=== PATIENT | female | born 1995 | race Caucasian/White ===

== ENCOUNTER 2017-11-16 22:30 | Inpatient (IN) | payer OTHER ==
[2017-11-16 23:06] LABS: APPEARANCE,URINE CLEAR; BILIRUBIN,URINE NEGATIVE (NEGATIVE); COLOR,URINE YELLOW; GLUCOSE, URINE NEGATIVE (NEGATIVE); KETONES,URINE NEGATIVE (NEGATIVE); LEUKOCYTE ESTERASE,URINE NEGATIVE (NEGATIVE); NITRITE,URINE NEGATIVE (NEGATIVE); PROTEIN,URINE NEGATIVE (NEGATIVE); URINE SPECIFIC GRAVITY 1.009; UROBILINOGEN,URINE NEGATIVE mg/dL (<2.0)
[2017-11-16] MEDS ORDERED: RINGERS SOLUTION,LACTATED 300 ML IV ONE (23:15)
[2017-11-16] MEDS ORDERED: DINOPROSTONE 10 MG VAGINAL INSERT.SR PV PRN (23:15)
[2017-11-16 23:16] LABS: ABSOLUTE EOSINOPHILS # (AUTO) 0.1 10^3/uL (0.0-0.6); ABSOLUTE LYMPHOCYTES (AUTO) 2.4 10^3/uL (0.5-4.7); ABSOLUTE MONOCYTES (AUTO) 0.7 10^3/uL (0.1-1.4); ABSOLUTE NEUT (AUTO) 9.1 10^3/uL (1.7-8.2); BASOPHILS % (AUTO) 0.4 % (0-2); EOSINOPHILS % (AUTO) 0.8 % (0-6); HEMOGLOBIN 11.4 g/dL (12.0-15.5); LYMPHOCYTES % (AUTO) 19.5 % (13-45); MEAN CORPUSCULAR HEMOGLOBIN 29.1 pg (27.0-33.4); MEAN CORPUSCULAR HGB CONC 34.6 g/dL (32.0-36.0); MEAN CORPUSCULAR VOLUME 84 fl (80-97); MONOCYTES % (AUTO) 5.8 % (3-13); PLATELET COUNT 329 10^3/uL (150-450); RED BLOOD COUNT 3.92 10^6/uL (3.72-5.28); RED CELL DISTRIBUTION WIDTH 12.4 % (11.5-14.0); SEGMENTED NEUTROPHILS % (AUTO) 73.5 % (42-78); TOTAL CELLS COUNTED % (AUTO) 100 %; WHITE BLOOD COUNT 12.4 10^3/uL (4.0-10.5)
[2017-11-16] MEDS ORDERED: ACETAMINOPHEN 325 MG TABLET PO PRN (23:16)
[2017-11-16] MEDS ORDERED: MAG HYDROX/AL HYDROX/SIMETH SUSP 30 ML UDCUP PO PRN (23:16)
[2017-11-16 23:28] LABS: ALANINE AMINOTRANSFERASE 20 U/L (9-52); ALBUMIN 3.3 g/dL (3.5-5.0); ALKALINE PHOSPHATASE 154 U/L (38-126); ANION GAP 10 (5-19); ASPARTATE AMINO TRANSFERASE 18 U/L (14-36); BILIRUBIN,DIRECT 0.2 mg/dL (0.0-0.4); BILIRUBIN,TOTAL 0.3 mg/dL (0.2-1.3); BLOOD UREA NITROGEN 6 mg/dL (7-20); CALCIUM 9.4 mg/dL (8.4-10.2); CARBON DIOXIDE 23 mmol/L (22-30); CHLORIDE 104 mmol/L (98-107); GLUCOSE 86 mg/dL (75-110); POTASSIUM 3.8 mmol/L (3.6-5.0); SODIUM 136.8 mmol/L (137-145); TOTAL PROTEIN 6.4 g/dL (6.3-8.2); URIC ACID 4.2 mg/dL (2.5-6.2)
[2017-11-16] MEDS ORDERED: DINOPROSTONE 10 MG VAGINAL INSERT.SR ONE (23:28)
[2017-11-16] MEDS ORDERED: ZOLPIDEM TARTRATE 5 MG TABLET PO ONE (23:30)
[2017-11-16] MEDS: RINGERS SOLUTION,LACTATED 1,000 ML IV PRN (23:32)
[2017-11-16 23:36] LABS: URINE AMPHETAMINES SCREEN NEGATIVE; URINE BARBITURATES SCREEN NEGATIVE; URINE BENZODIAZEPINES SCREEN NEGATIVE; URINE COCAINE SCREEN NEGATIVE; URINE MARIJUANA (THC) SCREEN NEGATIVE; URINE METHADONE SCREEN NEGATIVE; URINE PHENCYCLIDINE SCREEN NEGATIVE
[2017-11-16 23:40] LABS: UR PRO/CREAT RATIO RESULT 0.3 mg/mg (0.0-0.2); URINE CREATININE 57.7 mg/dL (16-327); URINE PROTEIN 19.2 mg/dL (<12)
[2017-11-17] MEDS: RINGERS SOLUTION,LACTATED 1,000 ML IV PRN ×2 (02:13→06:28)
[2017-11-17] MEDS ORDERED: ZOLPIDEM TARTRATE 5 MG TABLET ONE (02:16)
--- NOTE | 2017-11-17 04:52 | Admission Physical ---
Datetime Report Generated by CPN: 11/17/2017 04:52 CURRENT ADMISSION Chief Complaint: Scheduled Induction of Labor Indication for Induction: IUGR; Gestational HTN; Maternal Diabetes Admit Impression : Term, Intrauterine Admit Plan: Initiate Labor Protocol ALLERGIES Medication Allergies: No Known Allergies (11/16/2017) OBSTETRICAL HISTORY EDC: 12/08/2017 00:00 : 1 Para: 0 Term: 0 : 0 SAB: 0 IAB: 0 Ectopic: 0 Livin Cesareans: 0 VBACs: 0 Multiple Births: 0 Gestational Diabetes: Yes Rh Sensitization: No Incompetent Cervix: No HARI: No Infertility: No ART Treatment: No Uterine Anomaly: No IUGR: Yes Hx Previous C/S: No Macrosomia: No Hx Loss/Stillborn: No PIH: No Hx : No Placenta Previa/Abruption: No Depression/PP Depression: No PTL/PROM: No Post Hemorrhage: No Current Procedures: Ultrasound; NST Obstetrical History Comments: g1- current IUGR, CHTN, GDM SEE RECORDS Alcohol: No Marijuana : No Cocaine: No Other Illicit Drugs: No Cigarettes: Never Smoker. 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 Surgery: No Heart Disease: No Hosp/Surgery: Yes Autoimmune Disorder: No Anesthetic Complications: No Kidney Disease: Yes Abnormal Pap Smear: No Neuro/Epilepsy: No Psychiatric Disorders: No Other Medical Diseases: No Hepatitis/Liver Disease: No Significant Family History: No Varicosities/Phlebitis: No Trauma/Violence : No Thyroid Dysfunction: No Medical History Comments: tonsilectomy, anxiety INFECTIOUS HISTORY Gonorrhea: No Genital Herpes: No Chlamydia: No Tuberculosis: No Syphilis: No Hepatitis: No HIV/AIDS Exposure: No Rash or Viral Illness: No HPV: No PHYSICAL EXAM General: Normal HEENT: Normal Neurologic: Normal Thyroid: Normal Heart: Normal Lungs: Normal Breast: Deferred Back: Normal Abdomen: Normal Genitourinary Exam: Normal Extremities: Normal DTRs: Normal Pelvic Type: Adequate MEMBRANES Membranes: Intact FETUS A EGA: 37.0 PLANS FOR LABOR AND DELIVERY Labor and Delivery: None Pain Management: Epidural Feeding Preference: Breast Benefit of Breast Feed Discussed: Yes Circumcision: N/A INFORMED CONSENT Signature: with User ID: [email or web address]
[2017-11-17] MEDS ORDERED: EPHEDRINE SULFATE INJ 50 MG/1 ML AMPULE ONE (10:40)
[2017-11-17] MEDS ORDERED: BUPIVACAINE HCL 0.25 % INJ/PF (2.5 MG/1 ML) 30 ML VIAL ONE (10:40)
[2017-11-17] MEDS ORDERED: FENTANYL/BUPIVACAINE/NS/PF 300 MCG/150 ML RTUINJ EPI ONE (10:40)
[2017-11-17] MEDS ORDERED: OXYTOCIN/NORMAL SALINE 20 UNIT/1,000 ML RTUINJ IV PRN ×2 (11:15→18:28)
[2017-11-17] MEDS ORDERED: OXYTOCIN/NORMAL SALINE 20 UNIT/1,000 ML RTUINJ ONE (11:52)
[2017-11-17] MEDS ORDERED: MISOPROSTOL 0.2 MG TABLET ONE (17:20)
[2017-11-17] MEDS ORDERED: LIDOCAINE 1% INJ-PF (10 MG/ML) 30 ML SDV ONE (17:20)
[2017-11-17] MEDS ORDERED: DIBUCAINE 1% OINTMENT 28 GM TP PRN (18:28)
[2017-11-17] MEDS ORDERED: GLYCERIN/WITCH HAZEL LEAF 1 EACH MED..PAD TP PRN (18:28)
[2017-11-17] MEDS ORDERED: ACETAMINOPHEN WITH CODEINE #3 TABLET PO PRN ×2 (18:28)
[2017-11-17] MEDS ORDERED: NA PHOS,M-B/NA PHOS,DI-BA (ADULT) 133 ML ENEMA PR PRN (18:28)
[2017-11-17] MEDS ORDERED: ZOLPIDEM TARTRATE 5 MG TABLET PO PRN (18:28)
[2017-11-17] MEDS ORDERED: MEASLES,MUMPS&RUBELLA VACC/PF 0.5 ML VIAL SUBCUT PRN (18:28)
[2017-11-17] MEDS ORDERED: ACETAMINOPHEN 325 MG TABLET PO PRN (18:28)
[2017-11-17] MEDS ORDERED: MAGNESIUM HYDROXIDE SUSP 30 ML UDCUP PO PRN (18:28)
[2017-11-17] MEDS ORDERED: PSEUDOEPHEDRINE HCL 30 MG TABLET PO PRN (18:28)
[2017-11-17] MEDS ORDERED: PROMETHAZINE HCL 25 MG TABLET PO PRN (18:28)
[2017-11-17] MEDS ORDERED: DIPHENHYDRAMINE HCL 25 MG CAPSULE PO PRN (18:28)
[2017-11-17] MEDS ORDERED: BENZOCAINE/MENTHOL AEROSOL SPRAY 56 ML TOP PRN (18:28)
[2017-11-17] MEDS ORDERED: PROMETHAZINE HCL INJ 25 MG/1 ML VIAL IV PRN (18:28)
[2017-11-17] MEDS ORDERED: DIPH/PERTUSS(ACELL)/TETANUS VAC/PF 0.5 ML SYR (>=10YO) IM PRN (18:28)
[2017-11-17] MEDS ORDERED: PROMETHAZINE HCL 25 MG SUPP.RECT PR PRN (18:28)
[2017-11-17] MEDS ORDERED: ZOLPIDEM TARTRATE 5 MG TABLET PO SCH (22:00)
[2017-11-17] MEDS: IBUPROFEN 800 MG TABLET PO SCH (22:54)
[2017-11-17] MEDS: FAMOTIDINE 20 MG TABLET PO SCH (22:54)
[2017-11-18] MEDS: IBUPROFEN 800 MG TABLET PO SCH ×3 (06:23→21:36)
[2017-11-18 07:37] LABS: HEMATOCRIT 27.5 % (36.0-47.0); HEMOGLOBIN 9.4 g/dL (12.0-15.5); MEAN CORPUSCULAR HGB CONC 34.3 g/dL (32.0-36.0); MEAN CORPUSCULAR VOLUME 85 fl (80-97); PLATELET COUNT 246 10^3/uL (150-450); RED BLOOD COUNT 3.25 10^6/uL (3.72-5.28); RED CELL DISTRIBUTION WIDTH 12.8 % (11.5-14.0); WHITE BLOOD COUNT 16.7 10^3/uL (4.0-10.5)
[2017-11-18] MEDS: PRENATAL VITAMIN W DHA CAPSULE PO SCH (09:45)
[2017-11-18] MEDS: DOCUSATE SODIUM 100 MG CAPSULE PO SCH ×2 (09:45→17:29)
[2017-11-18] MEDS: FERROUS SULFATE 325 MG TABLET PO SCH ×2 (09:45→17:29)
[2017-11-18] MEDS: SENNOSIDES/DOCUSATE 8.6-50 MG 1 EACH TABLET PO SCH (09:45)
[2017-11-18] MEDS: FAMOTIDINE 20 MG TABLET PO SCH ×2 (09:45→21:36)
--- NOTE | 2017-11-18 10:16 | PDOC PROGRESS REPORT ---
Subjective-OB Progress Note for:: 11/18/17 Subjective: Doing well, holding baby, no c/o, , hsb at BS, lochia mod, eating well Physical Exam (OB) Vital Signs: Temp Pulse Resp BP Pulse Ox 98.0 F 89 16 123/66 97 11/18/17 08:28 11/18/17 08:28 11/18/17 08:28 11/18/17 08:28 11/18/17 08:28 Intake & Output 11/17/17 11/18/17 11/19/17 06:59 06:59 06:59 Intake Total 866 Balance 866 Weight 63.5 kg - Lochia Lochia Amount: Small 10-25 ml Lochia Color: Rubra/Red - Abdomen Description: Soft, Round Hernia Present: No Fundal Description: Firm, Midline Fundal Height: u/u - u/2 Objective-Diagnostic Laboratory: 11/18/17 07:02 11/16/17 23:00 11/18/17 07:02 WBC 16.7 H RBC 3.25 L Hgb 9.4 L Hct 27.5 L MCV 85 MCH 29.0 MCHC 34.3 RDW 12.8 Plt Count 246 Assessment and Plan(PN) - Assessment and Plan (1) Anemia Qualifiers: Anemia type: iron deficiency Is this a current diagnosis for this admission?: Yes (2) Obstetrical laceration, second degree Is this a current diagnosis for this admission?: Yes (3) Vaginal delivery Is this a current diagnosis for this admission?: Yes (4) Encounter for induction of labor Is this a current diagnosis for this admission?: Yes (5) Hypertension affecting Qualifiers: Trimester: third trimester Qualified Code(s): O16.3 - Unspecified maternal hypertension, third trimester Is this a current diagnosis for this admission?: Yes - Time Spent with Patient Time with patient: Less than 15 minutes Medications reviewed and adjusted accordingly: Yes - Disposition Anticipated Discharge: Home Within: within 48 hours
[2017-11-18 21:26] VITALS: BP 115/67
[2017-11-19] MEDS: IBUPROFEN 800 MG TABLET PO SCH (06:49)
--- NOTE | 2017-11-19 08:39 | PDOC PROGRESS REPORT ---
Subjective-OB Progress Note for:: 11/19/17 Subjective: Doing well, ready to go home Physical Exam (OB) Vital Signs: Temp Pulse Resp BP Pulse Ox 97.6 F 94 16 115/67 100 11/18/17 20:20 11/18/17 20:20 11/18/17 20:20 11/18/17 20:20 11/18/17 20:20 Intake & Output 11/18/17 11/19/17 11/20/17 06:59 06:59 06:59 Intake Total 400 Balance 400 Baby 1 Female 2.381 kg - PIH/Pre-Eclampsia DTR's: 1 + Clonus: Negative Headache: Absent Epigastric Pain: No Visual Changes: No - Lochia Lochia Amount: Small 10-25 ml Lochia Color: Rubra/Red - Abdomen Description: Tender, Soft Hernia Present: No Fundal Description: Firm, Midline Fundal Height: u/u - u/2 Objective-Diagnostic Laboratory: 11/18/17 07:02 11/16/17 23:00 Assessment and Plan(PN) - Assessment and Plan (1) Anemia Qualifiers: Anemia type: iron deficiency Is this a current diagnosis for this admission?: Yes (2) Obstetrical laceration, second degree Is this a current diagnosis for this admission?: Yes (3) Vaginal delivery Is this a current diagnosis for this admission?: Yes (4) Encounter for induction of labor Is this a current diagnosis for this admission?: Yes (5) Hypertension affecting Qualifiers: Trimester: third trimester Qualified Code(s): O16.3 - Unspecified maternal hypertension, third trimester Is this a current diagnosis for this admission?: Yes - Time Spent with Patient Time with patient: Less than 15 minutes Medications reviewed and adjusted accordingly: Yes - Disposition Anticipated Discharge: Home Within: Other - home today
--- NOTE | 2017-11-19 08:40 | PDOC DISCHARGE SUMMARY ---
Final Diagnosis Discharge Date: 11/19/17 - Final Diagnosis (1) Anemia Is this a current diagnosis for this admission?: Yes (2) Obstetrical laceration, second degree Is this a current diagnosis for this admission?: Yes (3) Vaginal delivery Is this a current diagnosis for this admission?: Yes (4) Encounter for induction of labor Is this a current diagnosis for this admission?: Yes (5) Hypertension affecting Is this a current diagnosis for this admission?: Yes Discharge Data - Discharge Medication Prescriptions: Ferrous Sulfate [Feosol 325 mg Tablet] 325 mg PO BID #60 tablet Ibuprofen [Motrin 800 mg Tablet] 800 mg PO Q8 #30 tablet Home Medications: 95/Iron Fum/Folic/Dha [ + Dha Combo Pack] 1 each PO DAILY 11/16 Ferrous Sulfate [Feosol 325 mg Tablet] 325 mg PO BID #60 tablet 11/18/17 Ibuprofen [Motrin 800 mg Tablet] 800 mg PO Q8 #30 tablet 11/18/17 Gestational Age: 37 Reason(s) for Admission: Induction of Labor, PIH Admission Note: Pre-E, IUGR Procedures: NST, Ultrasound Intrapartum Procedure(s): Spontaneous Vaginal Delivery Complication(s): Laceration-Vaginal Laceration-Degree: 2nd - [place] Data Baby 1 Female at 1 minute: 9 at 5 minutes: 9 Weight: 2.381 kg Home with Mother: Yes Complications: No - Diagnosis Test Laboratory: Temp Pulse Resp BP Pulse Ox 98.0 F 89 16 123/66 97 11/18/17 08:28 11/18/17 08:28 11/18/17 08:28 11/18/17 08:28 11/18/17 08:28 11/16/17 11/16/17 11/18/17 22:23 22:42 07:02 RBC 3.92 3.25 L Hgb 11.4 L 9.4 L Hct 33.0 L 27.5 L Urine Opiates Screen NEGATIVE - Discharge information/Instructions Discharge Activity: Activity As Tolerated, No Lifting Over 10 Pounds, No Lifting /Push/Pulling, Pelvic Rest Discharge Diet: As Tolerated, Regular Disposition: HOME, SELF-CARE Follow up with: [facility] in: 2, Weeks
[2017-11-19] MEDS: DOCUSATE SODIUM 100 MG CAPSULE PO SCH (09:58)
[2017-11-19] MEDS: FAMOTIDINE 20 MG TABLET PO SCH (09:58)
[2017-11-19] MEDS: SENNOSIDES/DOCUSATE 8.6-50 MG 1 EACH TABLET PO SCH (09:58)
[2017-11-19] MEDS: FERROUS SULFATE 325 MG TABLET PO SCH (09:58)
[2017-11-19] MEDS: PRENATAL VITAMIN W DHA CAPSULE PO SCH (09:58)
--- NOTE | 2017-11-24 08:38 | Delivery Summary ---
Del Sum A-C Datetime Report Generated by CPN: 11/24/2017 08:38 DELIVERY PERSONNEL DELIVERY PERSONNEL: [id number] Delivery Doctor:: Gala Rollins, CNM Labor and Delivery Nurse:: Siobhan Stele, RNC Integrated Circuit Layout Designer/HUMAN RESOURCES SUPERVISOR: Nicole Deems, BACTERIOLOGY TECHNICIAN MATERNAL INFORMATION Delivery Anesthesia: Epidural Medications After Delivery: Pitocin Drip 20 Units/1000ml NSS Maternal Complications: Other Complication Details: pre-e /chtn/gdm/iugr LABOR SUMMARY EDC: 12/08/2017 00:00 No. Babies in Womb: 1 Attempted: No Labor Anesthesia: Epidural LABOR INFORMATION Reason for Induction: Intrauterine Growth Retardation; Chronic Primary/Essential HTN; Gestational Hypertension; Pre-Eclampsia Onset of Labor: 11/17/2017 11:30 Complete Dilatation: 11/17/2017 17:40 Oxytocin: Induction Group B Beta Strep: Negative Antibiotics # of Doses: 0 Antibiotics Time of Last Dose: 0 Name of Antibiotic Given: 0 Steroids Given: None Reason Steroids Not Administered: Not Applicable MEMBRANES Membranes Rupture Method: Artificial Membranes Rupture Method: Artificial Rupture of Membranes: 11/17/2017 17:40 Rupture of Membranes: 11/17/2017 17:40 Length of Rupture (hr): 0.48 Length of Rupture (hr): 0.48 Amniotic Fluid Color: Clear Amniotic Fluid Color: Clear Amniotic Fluid Amount: Moderate Amniotic Fluid Amount: Moderate Amniotic Fluid Odor: Normal Amniotic Fluid Odor: Normal STAGES OF LABOR Stage 1 hr: 6 Stage 1 min: 10 Stage 2 hr: 0 Stage 2 min: 29 Stage 3 hr: 0 Stage 3 min: 2 Total Time in Labor hr: 6 Total Time in Labor min: 41 VAGINAL DELIVERY Episiotomy: None Laceration #1: Vaginal Laceration Extension #1: Second Degree Laceration Repair: Yes Laceration Repair Note: DIRECT OA, VIABLE FEMALE WITH SPONTANEOUS CRY. CORD DOUBLE CLAMPED AND CUT. SPONTANEOUS INTACT PLACENTA WITH 3VC. 2ND DEGREE POSTERIOR VAGINAL LACERATION REPAIRED UNDER EPIDURAL ANESTHESIA. MOTHER AND STABLE IN L_D #5 Sponge Count Correct: Yes Sharps Count Correct: Yes CSECTION DELIVERY Primary Indication: N/A Secondary Indication: N/A CSection Incidence: N/A Labor: N/A Elective: N/A CSection Incision: N/A BABY A INFORMATION Infant Delivery Date/Time: 11/17/2017 18:09 Method of Delivery: Vaginal Born in Route : No : N/A Forceps: N/A Vacuum Extraction: N/A Shoulder Dystocia : No PRESENTATION/POSITION BABY A Presentation: Cephalic Cephalic Presentation: Vertex Vertex Position: direct oa Breech Presentation: N/A PLACENTA INFORMATION BABY A Placenta Delivery Time : 11/17/2017 18:11 Placenta Method of Delivery: Spontaneous Placenta Status: Delivered SCORES BABY A Heart Rate 1 min: >100 bpm Resp Effort 1 min: Good Cry Reflex Irritability 1 min: Cough or Sneeze or Pulls Away Muscle Tone 1 min: Active Motion Color 1 min: Body [place], Extremities Blue Resuscitation Effort 1 min: Tactile Stimulation SCORE 1 MIN: 9 Heart Rate 5 min: >100 bpm Resp Effort 5 min: Good Cry Reflex Irritability 5 min: Cough or Sneeze or Pulls Away Muscle Tone 5 min: Active Motion Color 5 min: Body [place], Extremities Blue SCORE 5 MIN: 9 INFORMATION BABY A Gestational Age at Delivery: 37.0 Gestational Status: Early Term- 37- 38.6 Weeks Infant Outcome : Liveborn Infant Condition : Stable Infant Sex: Female IDENTIFICATION BABY A Verification Date/Time: 11/17/2017 19:13 ID Band Number: [id number] Mother's Name Verified: Yes RN Verifying Infant: O Richard RN/D Bellavance RN WEIGHT/LENGTH BABY A Infant Birthweight (gm): 2390 Infant Weight (lb): 5 Infant Weight (oz): 4 Infant Length (in): 18.00 Length (cm): 45.72 CORD INFORMATION BABY A No. Cord Vessels: 3 Nuchal Cord : N/A Cord Blood Taken: Yes-For Storage (Mom's Blood type +) Infant Suction: None ASSESSMENT BABY A Infant Complications: None Physical Findings at Delivery: Within Normal Limits Respirations: Appears Normal Infant Care By: D Bellavance RN Transferred To: Remains with Mother BABY B INFORMATION : N/A SIGNATURES Assignment: Yasmin Modi MD Signature: with User ID: [email or web address] : with User ID: [email or web address] : I was personally available for consultation and serving as supervising physician for the MLP.
== END 2017-11-19 18:30 | disposition home or self-care (01) | DRG 775 ==
LOC: LR 22:30 → EDBD 22:30 → 2S 11-17 20:54
PROVIDERS: ADMIT Obstetrics & Gynecology Gynecology; ATTEND Obstetrics & Gynecology Gynecology
PROC: 4A1HXCZ Monitoring of Products of Conception, Cardiac Rate, External Approach (ICD-10-PCS; 2017-11-16)
PROC: 10E0XZZ Delivery of Products of Conception, External Approach (ICD-10-PCS; principal; 2017-11-17)
PROC: 0KQM0ZZ Repair Perineum Muscle, Open Approach (ICD-10-PCS; 2017-11-17)
PROC: 10907ZC Drainage of Amniotic Fluid, Therapeutic from Products of Conception, Via Natural or Artificial Opening (ICD-10-PCS; 2017-11-17)
PROC: 3E033VJ Introduction of Other Hormone into Peripheral Vein, Percutaneous Approach (ICD-10-PCS; 2017-11-17)
DX: O13.4 Gestational [pregnancy-induced] hypertension without significant proteinuria, complicating childbirth (principal); O70.1 Second degree perineal laceration during delivery; O36.5930 Maternal care for other known or suspected poor fetal growth, third trimester, not applicable or unspecified; O99.02 Anemia complicating childbirth; D50.9 Iron deficiency anemia, unspecified; O24.429 Gestational diabetes mellitus in childbirth, unspecified control; Z3A.37 37 weeks gestation of pregnancy; Z37.0 Single live birth
CPT/HCPCS: 36415; 80053; 80307; 81005; 82570; 83615; 84156; 84550; 85025; 85027; 86592; 86850; 86900; 86901; 94760; J2590; J3010; J3490

== ENCOUNTER 2019-03-03 10:14 | Emergency (ER) | payer OTHER ==
--- NOTE | 2019-03-03 10:43 | ER Document Report ---
ED Dizziness/Weakness - General Chief Complaint: Dizziness Stated Complaint: DIZZINESS Time Seen by Provider: 03/03/19 10:33 Primary Care Provider: ASIA MORATAYA MD [Primary Care Provider] - Follow up as needed Mode of Arrival: Ambulatory Information source: Patient Notes: This 23-year-old woman presents to the emergency department with a complaint of dizziness which began yesterday. She describes i a spinning sensation which is worsened by changes in her head position. She denies prior history of vertigo. She also states when she walks she feels off balance. Her symptoms are improved at rest. She has no significant medical problems. She denies any prior ne urologic abnormalities or recent upper respiratory tract symptoms. TRAVEL OUTSIDE OF THE [place] IN LAST 30 DAYS: No - HPI Patient complains to provider of: Dizziness, Vertigo Onset: Yesterday Onset/Duration: Sudden Severity: Moderate - 23-year-old woman presents with a 1 day history of vertigo- like symptoms. Complains of burning sensation when she lifts her head looks to the left the right. She denies any active medical problems has a history of gestational diabetes. Pain Level: 0 - Related Data Allergies/Adverse Reactions: No Known Allergies Allergy (Verified 11/16/17 23:03) Past Medical History - Social History Smoking Status: Never Smoker Chew tobacco use (# tins/day): No Frequency of alcohol use: Occasional Drug Abuse: None Family History: Reviewed & Not Pertinent Patient has suicidal ideation: No Patient has homicidal ideation: No Review of Systems - Review of Systems Notes: REVIEW OF SYSTEMS GENERAL: Negative for any nausea, vomiting, fevers, chills, or weight loss. NEUROLOGIC: + Dizziness, + vertigo-like symptoms, no hemiparesis or weakness. HEENT: Negative for any head trauma, neck trauma, neck stiffness, photophobia, phonophobia, sinusitis, rhinitis. CARDIAC: Negative for any chest pain, dyspnea on exertion, paroxysmal nocturnal dyspnea, peripheral edema. PULMONARY: Negative for any shortness of breath, wheezing, COPD, or TB exposure. GASTROINTESTINAL: Negative for any abdominal pain, nausea, vomiting, bright red blood per rectum, melena. GENITOURINARY: Negative for any dysuria, hematuria, incontinence. INTEGUMENTARY: Negative for any rashes, cuts, insect bites. RHEUMATOLOGIC: Negative for any joint pains, photosensitive rashes, history of vasculitis or kidney problems. HEMATOLOGIC: Negative for any abnormal bruising, frequent infections or bleeding. Physical Exam - Vital signs Vitals: Temp Pulse Resp BP Pulse Ox 98.0 F 102 H 16 148/86 H 100 03/03/19 10:20 03/03/19 10:20 03/03/19 10:20 03/03/19 10:20 03/03/19 10:20 - Notes Notes: PHYSICAL EXAMINATION: GENERAL: Well-appearing, well-nourished and in no acute distress. HEAD: Atraumatic, normocephalic. EYES: Pupils equal round and reactive to light, extraocular movements intact, sclera anicteric, conjunctiva are normal. ENT: nares patent, oropharynx clear without exudates. Moist mucous membranes. Ear exam: Tympanic membranes dull, plus air-fluid level left side, wax blockage EAC right ear NECK: Normal range of motion, supple without lymphadenopathy LUNGS: Breath sounds clear to auscultation bilaterally and equal. No wheezes rales or rhonchi. HEART: Regular rate and rhythm without murmurs ABDOMEN: Soft, nontender, normoactive bowel sounds. No guarding, no rebound. No masses appreciated. EXTREMITIES: Normal range of motion, no pitting or edema. No cyanosis. NEUROLOGICAL: No focal neurological deficits. Moves all extremities spontaneously and on command. + Lateral nystagmus PSYCH: Normal mood, normal affect. SKIN: Warm, Dry, normal turgor, no rashes or lesions noted. Course - Re-evaluation Re-evalutation: 03/03/19 12:57 23-year-old female history of dizziness and vertigo-like symptoms urinalysis reveals nitrite positive urine with 85 WBCs. The patient notes that she has had multiple and recurrent UTIs since presently not taking any antibiotics. She is breast-feeding. Will treat with Keflex, meclizine, prednisone. I have encouraged the patient to follow-up with her primary care doctor for continued symptoms or difficulties. She is cautioned to return to the emergency department if fever, nausea vomiting or inability to take her medications. - Vital Signs Vital signs: Temp Pulse Resp BP Pulse Ox 98.7 F 98 16 129/74 H 98 03/03/19 13:29 03/03/19 13:29 03/03/19 13:29 03/03/19 13:29 03/03/19 13:29 - Laboratory Result Diagrams: 03/03/19 11:00 03/03/19 11:00 Laboratory results interpreted by me: 03/03/19 03/03/19 11:00 11:40 Sodium 145.5 H Chloride 110 H Urine Nitrite POSITIVE H Ur Leukocyte Esterase MODERATE H I have reviewed laboratory data and used this information and the treatment decisions regarding the patient. Discharge - Discharge Clinical Impression: Vertigo, UTI (urinary tract infection) Condition: Good Disposition: HOME, SELF-CARE Instructions: Urinary Tract Infection ([facility]), Vertigo ([facility]) Prescriptions: Meclizine HCl [Antivert 25 mg Tablet] 25 mg PO TID #21 tablet Prednisone [Deltasone 20 mg Tablet] 1 tab PO BID 3 Days tablet Cephalexin Monohydrate [Keflex 500 mg Capsule] 500 mg PO Q8 10 Days capsule Referrals: ASIA MORATAYA MD [Primary Care Provider] - Follow up as needed
[2019-03-03 11:18] LABS: ABSOLUTE BASOPHILS # (AUTO) 0.1 10^3/uL (0.0-0.2); ABSOLUTE LYMPHOCYTES (AUTO) 1.5 10^3/uL (0.5-4.7); ABSOLUTE MONOCYTES (AUTO) 0.4 10^3/uL (0.1-1.4); ABSOLUTE NEUT (AUTO) 3.8 10^3/uL (1.7-8.2); BASOPHILS % (AUTO) 0.9 % (0-2); EOSINOPHILS % (AUTO) 0.8 % (0-6); HEMATOCRIT 41.9 % (36.0-47.0); HEMOGLOBIN 14.4 g/dL (12.0-15.5); LYMPHOCYTES % (AUTO) 25.9 % (13-45); MEAN CORPUSCULAR HGB CONC 34.4 g/dL (32.0-36.0); MEAN CORPUSCULAR VOLUME 84 fl (80-97); MONOCYTES % (AUTO) 6.9 % (3-13); PLATELET COUNT 258 10^3/uL (150-450); RED BLOOD COUNT 4.97 10^6/uL (3.72-5.28); RED CELL DISTRIBUTION WIDTH 12.7 % (11.5-14.0); SEGMENTED NEUTROPHILS % (AUTO) 65.5 % (42-78); TOTAL CELLS COUNTED % (AUTO) 100 %; WHITE BLOOD COUNT 5.7 10^3/uL (4.0-10.5)
[2019-03-03 11:39] LABS: ANION GAP 9 (5-19); BLOOD UREA NITROGEN 10 mg/dL (7-20); CARBON DIOXIDE 27 mmol/L (22-30); CHLORIDE 110 mmol/L (98-107); GLUCOSE 100 mg/dL (75-110); POTASSIUM 4.4 mmol/L (3.6-5.0)
[2019-03-03 12:29] LABS: APPEARANCE,URINE SLIGHTLY-CLOUDY; BILIRUBIN,URINE NEGATIVE (NEGATIVE); COLOR,URINE YELLOW; GLUCOSE, URINE NEGATIVE (NEGATIVE); KETONES,URINE NEGATIVE (NEGATIVE); LEUKOCYTE ESTERASE,URINE MODERATE (NEGATIVE); NITRITE,URINE POSITIVE (NEGATIVE); PROTEIN,URINE NEGATIVE (NEGATIVE); UROBILINOGEN,URINE NEGATIVE mg/dL (<2.0)
[2019-03-03 13:32] VITALS: BP 129/74
== END 2019-03-03 13:29 | disposition home or self-care (01) ==
LOC: ER 10:14
DX: R42 Dizziness and giddiness (principal); N39.0 Urinary tract infection, site not specified
CPT/HCPCS: 36415; 80048; 81001; 81025; 85025; 99284